=== PATIENT | male | born 1975 | race Caucasian/White ===

== ENCOUNTER 2021-04-26 18:01 | Emergency (ER) | payer BC, OTHER ==
[2021-04-26] MEDS ORDERED: ACETAMINOPHEN 500 MG TAB ONE (19:20)
[2021-04-26] MEDS ORDERED: NA CHLORIDE 0.9% 1,000 ML ONE (19:20)
[2021-04-26 19:51] LABS: Absolute Lymphocytes (CBC) 1.5 K/uL (0.7-4.9); Basophils % 0.4 % (0-1.3); Hematocrit 46.9 % (39.6-49.0); MPV 8.5 fL (7.6-11.3); RBC Red Blood Cell Count 5.24 M/uL (4.33-5.43)
[2021-04-26 19:52] LABS: Protime INR 0.99
--- NOTE | 2021-04-26 19:55 | RAD REPORT ---
EXAM DESCRIPTION: [place] Single View04/26/2021 7:21 pm CLINICAL HISTORY: fever COMPARISON: none FINDINGS: The lungs appear clear of acute infiltrate. The heart is normal size IMPRESSION: No acute abnormalities displayed
--- NOTE | 2021-04-26 19:55 | RAD REPORT ---
EXAM DESCRIPTION: CT - Stone Protocol - 04/26/2021 7:34 pm CLINICAL HISTORY: Abdominal pain. COMPARISON: None. TECHNIQUE: Computed axial tomography of the abdomen pelvis was obtained without oral or IV contrast. Lack of IV and oral contrast limits evaluation of solid organs, bowel, and vessels. Coronal reformat kyra images were obtained and reviewed. All CT scans are performed using dose optimization technique as appropriate and may include automated exposure control or mA/KV adjustment according to patient size. FINDINGS: A 1 millimeter calculus left kidney. No hydronephrosis. . An ureteral calculus is not note d. A bladder calculus is not present. Postsurgical changes involve the stomach. Small to moderate hiatal hernia The liver, spleen, pancreas and adrenals appear grossly normal There is no evidence of diverticulitis. Small inguinal hernias contain fat 4 centimeter amorphous soft tissue anterior central upper pelvis IMPRESSION: 1 millimeter nonobstructing left renal calculus. 4 centimeter amorphous soft tissue anterior central upper pelvis. It is uncertain if this all represe nts normal unopacified small bowel, inflammation or less likely mass. It is recommended that the vanessa ent have a CT scan with oral contrast for further evaluation
[2021-04-26 20:05] LABS: ALT/SGPT 39 U/L (12-78); AST/SGOT 21 U/L (15-37); Albumin 4.2 g/dL (3.4-5.0); Alkaline Phosphatase 59 U/L (45-117); Amylase 57 U/L (25-115); BUN Blood Urea Nitrogen 10 mg/dL (7-18); Bicarbonate 28 mmol/L (21-32); Bilirubin Direct 0.2 mg/dL (0-0.2); Bilirubin Total 0.9 mg/dL (0.2-1.0); Creatine Phosphokinase 110 U/L (39-308); Glucose Level 95 mg/dL (74-106); Lipase 94 U/L (73-393); Potassium 3.8 mmol/L (3.5-5.1); Protein, Total 8.5 g/dL (6.4-8.2); Sodium Level 138 mmol/L (136-145); Troponin (Emerg Dept Use Only) < 0.02 ng/mL (0.0-0.045)
[2021-04-26 20:10] LABS: CKMB Creatine Kinase MB < 1.0 ng/mL (1.0-3.6)
[2021-04-26 20:41] LABS: Urine Bacteria >50 /HPF (NONE SEEN)
[2021-04-26] MEDS ORDERED: CEFTRIAXONE/SWI 1gm 1 GM/10 ML SYR ONE (20:42)
[2021-04-26] MEDS ORDERED: IBUPROFEN 400 MG TAB ONE (20:42)
[2021-04-26 20:58] LABS: Urine Blood Trace-intact (Negative); Urine Glucose Negative (Negative); Urine Protein Negative (Negative)
[2021-04-26 21:23] LABS: Blood Morphology Comment NOT SEEN (NOT SEEN); Platelet Estimate ADEQ; White Blood Cell Scan OK (OK)
--- NOTE | 2021-04-26 21:40 | EDPHYS ---
Physician Documentation [facility] Name: Tru Cyr Age: 45 yrs Sex: Male : 1975 Arrival Date: 04/26/2021 Time: 18:02 Bed 19 Private MD: ED Physician Joseph Kamara HPI: 04/26 21:51 This 45 yrs old Male presents to ER via Wheelchair with complaints of septic. kb 21:51 The patient complains of pain in the right flank. The pain does not radiate. Onset: The kb symptoms/episode began/occurred today. Modifying factors: The symptoms are alleviated by nothing. the symptoms are aggravated by nothing. Associated signs and symptoms: Pertinent positives: fever, Pertinent negatives: diarrhea, dizziness, dysuria, urinary frequency, headache, hematuria, nausea, pain radiating to the lower extremities, vomiting. Severity of pain: At its worst the pain was moderate in the emergency department the pain is unchanged. The patient has not experienced similar symptoms in the past. The patient has not recently seen a physician. Pt reports he was driving home from work and felt his head get foggy so he called his to pick him up. States this has happened several times in the past due to an infection in his leg. States he has been septic before from cellulitis and it always starts out with foggy head and fever. . Historical: - Allergies: 18:16 No Known Allergies; aa5 - PMHx: 18:16 Cellulitis; Sepsis; aa5 - Immunization history:: Client reports receiving the Travis \T\ Travis single-dose vaccine. - Social history:: Smoking status: Patient denies any tobacco usage or history of. ROS: 21:49 Respiratory: Negative for shortness of breath, cough, wheezing, and pleuritic chest kb pain. 21:49 Constitutional: Positive for fever. 21:49 : Positive for flank pain. 21:49 All other systems are negative. Exam: 21:49 Constitutional: This is a well developed, well nourished patient who is awake, alert, kb and in no acute distress. Head/Face: Normocephalic, atraumatic. ENT: Moist Mucous membranes Cardiovascular: Regular rate and rhythm with a normal S1 and S2. No gallops, murmurs, or rubs. No pulse deficits. Respiratory: Respirations even and unlabored. No increased work of breathing, no retractions or nasal flaring. Abdomen/GI: Soft, non-tender. No distention Skin: Warm, dry with normal turgor. Normal color. MS/ Extremity: Pulses equal, no cyanosis. Neurovascular intact. Full, normal range of motion. Neuro: Awake and alert, GCS 15, oriented to person, place, time, and situation. Moves all extremities. Normal gait. Psych: Awake, alert, with orientation to person, place and time. Behavior, mood, and affect are within normal limits. 21:49 Back: CVA tenderness, that is mild, is noted on the right. Vital Signs: 18:17 BP 155 / 93; Pulse 107; Resp 24 S; Temp 101.4(O); Pulse Ox 96% on R/A; Weight 158.76 kg aa5 (R); Height 6 ft. 4 in. (193.04 cm) (R); 19:10 BP 154 / 96; Pulse 99; Resp 18; Pulse Ox 97% on R/A; tr6 20:32 BP 132 / 92; Pulse 108; Resp 20; Temp 102.7; Pulse Ox 98% on R/A; Pain 0/10; kc4 21:06 BP 115 / 63; Pulse 86; Resp 20; Temp 100.1; Pulse Ox 98% on R/A; Pain 3/10; kc4 22:02 BP 125 / 70 RA Supine (auto/reg); Pulse 90; Resp 18; Temp 99.0; Pulse Ox 99% on R/A; kc4 Pain 0/10; 18:17 Body Mass Index 42.60 (158.76 kg, 193.04 cm) aa5 Naty Coma Score: 21:06 Eye Response: spontaneous(4). Verbal Response: oriented(5). Motor Response: obeys kc4 commands(6). Total: 15. MDM: 18:40 Patient medically screened. kb 21:49 Data reviewed: vital signs, nurses notes. Data interpreted: Pulse oximetry: on room air kb is 98 %. Interpretation: normal. Counseling: I had a detailed discussion with the patient and/or guardian regarding: the historical points, exam findings, and any diagnostic results supporting the discharge/admit diagnosis, lab results, radiology results, the need for outpatient follow up, a urologist, to return to the emergency department if symptoms worsen or persist or if there are any questions or concerns that arise at home. 04/26 18:45 Order name: Amylase, Serum kb 04/26 18:45 Order name: Basic Metabolic Panel kb 04/26 18:45 Order name: Blood Culture Adult (2) kb 04/26 18:45 Order name: CBC with Diff; Complete Time: 21:23 kb 04/26 18:45 Order name: CPK; Complete Time: 20:11 kb 04/26 18:45 Order name: Ckmb; Complete Time: 20:11 kb 04/26 18:45 Order name: LFT's; Complete Time: 20:11 kb 04/26 18:45 Order name: Lactate; Complete Time: 20:28 kb 04/26 18:45 Order name: Lipase; Complete Time: 20:11 kb 04/26 18:45 Order name: Procalcitonin; Complete Time: 21:39 kb 04/26 18:45 Order name: Protime (+inr); Complete Time: 20:12 kb 04/26 18:45 Order name: Ptt, Activated; Complete Time: 20:12 kb 04/26 18:45 Order name: Troponin (emerg Dept Use Only); Complete Time: 20:11 kb 04/26 18:45 Order name: Urine Microscopic Only; Complete Time: 20:41 kb 04/26 18:45 Order name: Chest Single View XRAY; Complete Time: 20:10 kb 04/26 18:45 Order name: Accucheck; Complete Time: 19:45 kb 04/26 18:45 Order name: Cardiac monitoring; Complete Time: 19:08 kb 04/26 18:45 Order name: CT Stone Protocol; Complete Time: 20:10 kb 04/26 18:45 Order name: Amylase; Complete Time: 20:11 EDMS 04/26 18:45 Order name: Basic Metabolic Panel; Complete Time: 20:11 EDMS 04/26 19:51 Order name: Glucose, Ancillary Testing; Complete Time: 20:10 EDMS 04/26 20:43 Order name: Urine Culture EDMS 04/26 20:51 Order name: SARS-COV-2 RT PCR; Complete Time: 20:56 EDMS 04/26 20:58 Order name: Urine Dipstick-Ancillary; Complete Time: 20:58 EDMS 04/26 21:23 Order name: CBC Smear Scan; Complete Time: 21:23 EDMS 04/26 18:45 Order name: EKG - Nurse/Tech; Complete Time: 20:53 kb 04/26 18:45 Order name: IV Saline Lock - Large Bore; Complete Time: 19:08 kb 04/26 18:45 Order name: Labs collected and sent; Complete Time: 19:08 kb 04/26 18:45 Order name: O2 Per Protocol; Complete Time: 19:08 kb 04/26 18:45 Order name: O2 Sat Monitoring; Complete Time: 19:08 kb 04/26 18:45 Order name: Urine Dipstick-Ancillary (obtain specimen); Complete Time: 21:05 kb Administered Medications: 18:57 Drug: Acetaminophen 1000 mg Route: PO; tr6 19:21 Follow up: Response: No adverse reaction kc4 19:05 Drug: NS 0.9% (30 ml/kg) 30 ml/kg Route: IV; Rate: bolus; Site: right forearm; tr6 21:09 Follow up: Response: No adverse reaction; IV Status: Completed infusion kc4 21:10 Follow up: IV Status: Completed infusion kc4 20:33 Drug: Ibuprofen 800 mg Route: PO; kc4 20:50 Follow up: Response: Temperature is unchanged kc4 22:06 Follow up: Response: Temperature is decreased kc4 20:34 Drug: Rocephin (cefTRIAXone) 1 grams Route: IV; Rate: calculated rate; Site: right kc4 antecubital; 21:04 Follow up: Response: No adverse reaction kc4 22:06 Follow up: IV Status: Completed infusion kc4 21:11 Drug: NS 0.9% (30 ml/kg) 30 ml/kg Route: IV; Rate: bolus; Site: right antecubital; kc4 22:07 Follow up: IV Status: Completed infusion kc4 Disposition: 04/27 08:08 Co-signature as Attending Physician, Joseph Kamara MD I agree with the assessment and kdr plan of care. Disposition Summary: 04/26/21 21:39 Discharge Ordered Location: Home kb Condition: Stable kb Diagnosis - UTI/ Urinary tract infection, site not specified kb Followup: kb - With: Emergency Department - When: As needed - Reason: Worsening of condition Followup: kb - With: Private Physician - When: 2 - 3 days - Reason: Recheck today's complaints, Continuance of care, Re-evaluation by your physician Discharge Instructions: - Discharge Summary Sheet kb - Urinary Tract Infection, Adult, [id number] kb Forms: - Medication Reconciliation Form kb - Thank You Letter kb - Antibiotic Education kb - Prescription Opioid Use kb Prescriptions: - Cipro 500 mg Oral Tablet - take 1 tablet by ORAL route every 12 hours for 10 days; 20 tablet; Refills: 0, kb Product Selection Permitted Signatures: Dispatcher [employer] EDDC Minerva Yun, HEALTHCARE MANAGER-C HEALTHCARE MANAGER-Ckb Joseph Kamara MD MD [facility], RN RN aa5 Hussain Rodriguez FNP-C HEALTHCARE MANAGER-Cla1 Yolanda Henry RN RN tr6 Aria Copeland Corrections: (The following items were deleted from the chart) 04/26 19:49 18:46 CORONAVIRUS+ ordered. EDDC EDDC
--- NOTE | 2021-04-26 21:40 | ER ---
Nurse's Notes [facility] Name: Tru Cyr Age: 45 yrs Sex: Male : 1975 Arrival Date: 04/26/2021 Time: 18:02 Bed 19 Private MD: Diagnosis: UTI/ Urinary tract infection, site not specified Presentation: 04/26 18:17 Chief complaint: Pt's states "he normally gets septic before we know it from aa5 cellulitis from the right leg, he started with pain to his right leg and his flank is hurting too". Pt reports fever. Coronavirus screen: fever. Ebola Screen: Patient negative for fever greater than or equal to 101.5 degrees Fahrenheit, and additional compatible Ebola Virus Disease symptoms. Initial Sepsis Screen: Does the patient meet any 2 criteria? Temp <36.0*C (96.8*F)) or > 38.3*C (100.9*F). HR > 90 bpm. Yes Does the patient have a suspected source of infection? Yes:. Risk Assessment: Do you want to hurt yourself or someone else? Patient reports no desire to harm self or others. Onset of symptoms was April 2021. 18:17 Method Of Arrival: Wheelchair aa5 18:17 Acuity: CULLEN 2 aa5 Historical: - Allergies: 18:16 No Known Allergies; aa5 - PMHx: 18:16 Cellulitis; Sepsis; aa5 - Immunization history:: Client reports receiving the Travis \\T\\ Travis single-dose vaccine. - Social history:: Smoking status: Patient denies any tobacco usage or history of. Screenin:08 Abuse screen: Denies threats or abuse. Denies injuries from another. Nutritional tr6 screening: No deficits noted. Tuberculosis screening: No symptoms or risk factors identified. Fall Risk None identified. Assessment: 19:09 General: Appears in no apparent distress. comfortable, obese, Behavior is calm, tr6 cooperative, appropriate for age. Pain: Denies pain. Neuro: Level of Consciousness is awake, alert, obeys commands, Oriented to person, place, time, situation, Appropriate for age. Cardiovascular: No deficits noted. Respiratory: No deficits noted. GI: No deficits noted. : No deficits noted. EENT: No deficits noted. Derm: Skin temperature is hot. Musculoskeletal: No deficits noted. Vital Signs: 18:17 BP 155 / 93; Pulse 107; Resp 24 S; Temp 101.4(O); Pulse Ox 96% on R/A; Weight 158.76 kg aa5 (R); Height 6 ft. 4 in. (193.04 cm) (R); 19:10 BP 154 / 96; Pulse 99; Resp 18; Pulse Ox 97% on R/A; tr6 20:32 BP 132 / 92; Pulse 108; Resp 20; Temp 102.7; Pulse Ox 98% on R/A; Pain 0/10; kc4 21:06 BP 115 / 63; Pulse 86; Resp 20; Temp 100.1; Pulse Ox 98% on R/A; Pain 3/10; kc4 22:02 BP 125 / 70 RA Supine (auto/reg); Pulse 90; Resp 18; Temp 99.0; Pulse Ox 99% on R/A; kc4 Pain 0/10; 18:17 Body Mass Index 42.60 (158.76 kg, 193.04 cm) aa5 Vitals: 21:06 Cardiac Rhythm Assessment Regular Sinus rhythm. kc4 Naty Coma Score: 21:06 Eye Response: spontaneous(4). Verbal Response: oriented(5). Motor Response: obeys kc4 commands(6). Total: 15. ED Course: 18:02 Patient arrived in ED. as 18:16 Arm band placed on. aa5 18:20 Triage completed. aa5 18:40 Minerva Yun F[facility]-C [facility]. kb 18:40 Joseph Kamara MD is Attending Physician. kb 18:46 Yolanda Henry RN is Primary Nurse. tr6 19:05 Inserted saline lock: 18 gauge in right forearm, using aseptic technique. Blood tr6 collected. 19:08 Resting quietly. Awaiting lab results. tr6 19:08 Patient has correct armband on for positive identification. Placed in gown. Bed in low tr6 position. Side rails up X2. quality assurance monitor final on. Pulse ox on. NIBP on. Door closed. Noise minimized. Visitors limited. Lights dimmed. Moved to private room. Warm blanket given. 19:08 No provider procedures requiring assistance completed. Patient maintains SpO2 tr6 saturation greater than 95% on room air. 19:19 Amylase, Serum Sent. kc4 19:19 Basic Metabolic Panel Sent. kc4 19:19 Blood Culture Adult (2) Sent. kc4 19:19 CBC with Diff Sent. kc4 19:19 CPK Sent. kc4 19:19 Ckmb Sent. kc4 19:20 LFT's Sent. kc4 19:20 Lactate Sent. kc4 19:20 Lipase Sent. kc4 19:20 Procalcitonin Sent. kc4 19:20 Protime (+inr) Sent. kc4 19:20 Ptt, Activated Sent. kc4 19:20 Troponin (emerg Dept Use Only) Sent. kc4 19:20 Urine Microscopic Only Sent. kc4 19:21 Chest Single View XRAY In Process Unspecified. EDMS 19:34 CT Stone Protocol In Process Unspecified. EDMS 22:04 IV discontinued, intact, bleeding controlled, No redness/swelling at site. Pressure kc4 dressing applied. Administered Medications: 18:57 Drug: Acetaminophen 1000 mg Route: PO; tr6 19:21 Follow up: Response: No adverse reaction kc4 19:05 Drug: NS 0.9% (30 ml/kg) 30 ml/kg Route: IV; Rate: bolus; Site: right forearm; tr6 21:09 Follow up: Response: No adverse reaction; IV Status: Completed infusion kc4 21:10 Follow up: IV Status: Completed infusion kc4 20:33 Drug: Ibuprofen 800 mg Route: PO; kc4 20:50 Follow up: Response: Temperature is unchanged kc4 22:06 Follow up: Response: Temperature is decreased kc4 20:34 Drug: Rocephin (cefTRIAXone) 1 grams Route: IV; Rate: calculated rate; Site: right kc4 antecubital; 21:04 Follow up: Response: No adverse reaction kc4 22:06 Follow up: IV Status: Completed infusion kc4 21:11 Drug: NS 0.9% (30 ml/kg) 30 ml/kg Route: IV; Rate: bolus; Site: right antecubital; kc4 22:07 Follow up: IV Status: Completed infusion kc4 Outcome: 21:39 Discharge ordered by . kb 22:04 Discharged to home ambulatory, with significant other. kc4 22:04 Condition: improved 22:04 Discharge instructions given to patient, significant other, Instructed on discharge instructions, follow up and referral plans. medication usage, Demonstrated understanding of instructions, follow-up care, medications, Prescriptions given X 1. 22:07 Patient left the ED. kc4 Signatures: Dispatcher [employer] EDMinerva Maldonado, CARMEN OLIVIER-Allyn Camp Audri, RN RN aa5 Yolanda Henry RN RN tr6 Aria Copeland kc4 Corrections: (The following items were deleted from the chart) 21:11 21:09 NS 0.9% (30 ml/kg) 30 ml/kg IV at bolus in right antecubital kc4 kc4
[2021-04-26 23:22] VITALS: BP 125/70; TEMP 99; O2SAT 99
== END 2021-04-26 22:07 | disposition home or self-care (01) ==
LOC: ER 18:01
DX: N39.0 Urinary tract infection, site not specified (principal); Z20.822 Contact with and (suspected) exposure to COVID-19
CPT/HCPCS: 93005; 87040 ×2; 87088; 85025; 87086; 80048; 36415; 82150; 82550; 85610; 82947; 80076; 83605; 85730; 87077; 87186; 84484; 82553; 83690; 84145; 76377; 74176; 71045; 99285; U0003; J0696; J7030; 81003; 81015

== ENCOUNTER 2021-05-12 10:34 | Emergency (ER) | payer BC ==
[2021-05-12 11:38] LABS: Absolute Lymphocytes (CBC) 1.9 K/uL (0.7-4.9); Basophils % 0.7 % (0-1.3); Hematocrit 43.6 % (39.6-49.0); Lymphocytes % 27.7 % (15.3-44.8); MPV 8.3 fL (7.6-11.3); RBC Red Blood Cell Count 4.91 M/uL (4.33-5.43)
[2021-05-12 11:41] LABS: Protime INR 0.96
[2021-05-12] MEDS ORDERED: AMLODIPINE 5 MG TAB ONE (11:52)
[2021-05-12] MEDS ORDERED: FOLIC ACID 5 MG/ML VIAL ONE (11:53)
[2021-05-12] MEDS ORDERED: NA CHLORIDE 0.9% 1,000 ML ONE (11:53)
[2021-05-12 11:58] LABS: ALT/SGPT 35 U/L (12-78); AST/SGOT 15 U/L (15-37); Albumin 3.5 g/dL (3.4-5.0); Alkaline Phosphatase 51 U/L (45-117); BUN Blood Urea Nitrogen 13 mg/dL (7-18); Bicarbonate 29 mmol/L (21-32); Bilirubin Direct 0.1 mg/dL (0-0.2); Bilirubin Total 0.5 mg/dL (0.2-1.0); Glucose Level 88 mg/dL (74-106); Magnesium 2.1 mg/dL (1.8-2.4); NT PRO-BNP 98 pg/mL (<125); Potassium 4.1 mmol/L (3.5-5.1); Protein, Total 7.1 g/dL (6.4-8.2); Sodium Level 143 mmol/L (136-145); Troponin (Emerg Dept Use Only) < 0.02 ng/mL (0.0-0.045)
--- NOTE | 2021-05-12 12:29 | RAD REPORT ---
EXAM DESCRIPTION: RAD - Chest Single View - 05/12/2021 12:12 pm CLINICAL HISTORY: COUGH COMPARISON: Chest Single View dated 04/26/2021 FINDINGS: Lines: None. Lungs: No evidence of edema or pneumonia. Pleural: No significant pleural effusions or pneumothorax. Cardiac: The heart size is within normal limits. Bones: No acute fractures. Other: IMPRESSION: No acute cardiopulmonary disease.
--- NOTE | 2021-05-12 12:32 | RAD REPORT ---
EXAM DESCRIPTION: CT - Head angio - 05/12/2021 12:23 pm CLINICAL HISTORY: Dizziness;Headache COMPARISON: Head Brain Wo Cont dated 05/12/2021; MAXILLOFACIAL W O CONTRAST dated 10/16/2009 TECHNIQUE: CT angiography of the head was performed with MIPs. All CT scans are performed using dose optimization technique as appropriate and may include automated exposure control or mA/KV adjustment according to patient size. FINDINGS: Anterior circulation: No aneurysm or large vessel occlusion. No hemodynamically significant stenosis. No arteriovenous malf ormation identified. Posterior circulation: No aneurysm or large vessel occlusion. No hemodynamically significant stenosis. No arteriovenous malf ormation identified. IMPRESSION: No significant flow abnormality is detected.
--- NOTE | 2021-05-12 12:32 | RAD REPORT ---
EXAM DESCRIPTION: CT - Head Brain Wo Cont - 05/12/2021 12:23 pm CLINICAL HISTORY: Dizziness;Headache COMPARISON: MAXILLOFACIAL W O CONTRAST dated 10/16/2009 TECHNIQUE: All CT scans are performed using dose optimization technique as appropriate and may inclu de automated exposure control or mA/KV adjustment according to patient size. FINDINGS: No intracranial hemorrhage, hydrocephalus or extra-axial fluid collection.No areas of brai n edema or evidence of midline shift. The paranasal sinuses and mastoids are clear. The calvarium is intact. IMPRESSION: No acute intracranial abnormality.
--- NOTE | 2021-05-12 12:34 | RAD REPORT ---
EXAM DESCRIPTION: CT - Neck Angio - 05/12/2021 12:23 pm CLINICAL HISTORY: PAIN COMPARISON: No comparisons TECHNIQUE: CT angiography of the neck vessels was performed with MIPs. All CT scans are performed using dose optimization technique as appropriate and may include automated exposure control or mA/KV adjustment according to patient size. FINDINGS: A left aortic arch is identified with normal three vessel configuration of the great vesse ls. No significant flow abnormality is seen of the common carotid bilaterally. No significant stenosis is identified involving the cervical segments of both internal carotid arteri es. Normal flow is seen within both vertebral arteries. IMPRESSION: No significant flow abnormality of the neck vessels is identified.
[2021-05-12 12:37] LABS: Urine Blood Negative (Negative); Urine Glucose Negative (Negative); Urine Protein Negative (Negative); Urine Specific Gravity 1.015 (1.005-1.030)
--- NOTE | 2021-05-12 12:41 | EDPHYS ---
Physician Documentation [facility] Name: Tru Cyr Age: 46 yrs Sex: Male : 1975 Arrival Date: 05/12/2021 Time: 10:34 Bed 12 Private MD: Kevin Gross ED Physician Guillaume Resendez HPI: 05/12 11:24 This 46 yrs old Male presents to ER via Ambulatory with complaints of zahraa Headache. 11:24 The patient complains of pain to the top of head, forehead, left frontal area, left zahraa side of the back of head, left occipital area, left base of the skull, right frontal area, right side of the back of head, right occipital area and right base of the skull. The patient describes the headache as pounding, a pressure. Onset: The symptoms/episode began/occurred 5 day(s) ago. Associated signs and symptoms: Pertinent positives: dizziness, nausea, blurred vision. Severity of symptoms: At its worst the pain was moderate, in the emergency department the pain is unchanged. Headache History: Denies prior headaches. The symptoms are alleviated by nothing. the symptoms are aggravated by nothing. The patient has not experienced similar symptoms in the past. Historical: - Allergies: 10:43 No Known Allergies; tr6 - Home Meds: 10:43 Celexa Oral [Active]; tr6 - PMHx: 10:43 Cellulitis; Sepsis; flesh eating bacteria; tr6 - PSHx: 10:43 gastric sleeve; tr6 - Immunization history:: Adult Immunizations up to date, Client reports receiving the Travis \T\ Travis single-dose vaccine. Date received November 2020. - Social history:: Smoking status: Patient denies any tobacco usage or history of. Patient uses. - Family history:: not pertinent. ROS: 11:24 Constitutional: Negative for fever, chills, and weight loss, Eyes: Negative for injury, zahraa pain, redness, and discharge, ENT: Negative for injury, pain, and discharge, Neck: Negative for injury, pain, and swelling, Cardiovascular: Negative for chest pain, palpitations, and edema, Respiratory: Negative for shortness of breath, cough, wheezing, and pleuritic chest pain, Abdomen/GI: Negative for abdominal pain, nausea, vomiting, diarrhea, and constipation, Back: Negative for injury and pain, : Negative for injury, bleeding, discharge, and swelling, MS/Extremity: Negative for injury and deformity, Skin: Negative for injury, rash, and discoloration, Psych: Negative for depression, anxiety, suicide ideation, homicidal ideation, and hallucinations, Allergy/Immunology: Negative for hives, rash, and allergies, Endocrine: Negative for neck swelling, polydipsia, polyuria, polyphagia, and marked weight changes, Hematologic/Lymphatic: Negative for swollen nodes, abnormal bleeding, and unusual bruising. 11:24 Neuro: Positive for headache, weakness. Exam: 11:24 Constitutional: This is a well developed, well nourished patient who is awake, alert, zahraa and in no acute distress. Head/Face: Normocephalic, atraumatic. Eyes: Pupils equal round and reactive to light, extra-ocular motions intact. Lids and lashes normal. Conjunctiva and sclera are non-icteric and not injected. Cornea within normal limits. Periorbital areas with no swelling, redness, or edema. ENT: Nares patent. No nasal discharge, no septal abnormalities noted. Tympanic membranes are normal and external auditory canals are clear. Oropharynx with no redness, swelling, or masses, exudates, or evidence of obstruction, uvula midline. Mucous membranes moist. Neck: Trachea midline, no thyromegaly or masses palpated, and no cervical lymphadenopathy. Supple, full range of motion without nuchal rigidity, or vertebral point tenderness. No Meningismus. Chest/axilla: Normal chest wall appearance and motion. Nontender with no deformity. No lesions are appreciated. Cardiovascular: Regular rate and rhythm with a normal S1 and S2. No gallops, murmurs, or rubs. Normal PMI, no JVD. No pulse deficits. Respiratory: Lungs have equal breath sounds bilaterally, clear to auscultation and percussion. No rales, rhonchi or wheezes noted. No increased work of breathing, no retractions or nasal flaring. Abdomen/GI: Soft, non-tender, with normal bowel sounds. No distension or tympany. No guarding or rebound. No evidence of tenderness throughout. Back: No spinal tenderness. No costovertebral tenderness. Full range of motion. Male : Normal genitalia with no discharge or lesions. Skin: Warm, dry with normal turgor. Normal color with no rashes, no lesions, and no evidence of cellulitis. MS/ Extremity: Pulses equal, no cyanosis. Neurovascular intact. Full, normal range of motion. Neuro: Awake and alert, GCS 15, oriented to person, place, time, and situation. Cranial nerves II-XII grossly intact. Motor strength 5/5 in all extremities. Sensory grossly intact. Cerebellar exam normal. Normal gait. Psych: Awake, alert, with orientation to person, place and time. Behavior, mood, and affect are within normal limits. 11:24 Neck: ROM/movement: is normal, no acute changes, pain, is not appreciated, limited range of motion, is not appreciated, Meningeal signs: are not present, Kernig's sign is negative, Brudzinski's sign is negative. 12:30 ECG was reviewed by the Attending Physician. [facility] Vital Signs: 10:37 BP 165 / 117; Pulse 90; Resp 18; Temp 98.1(T); Pulse Ox 100% on R/A; Weight 158.76 kg; tr6 Height 6 ft. 4 in. (193.04 cm); Pain 5/10; 10:53 BP 151 / 79; Pulse 79; Resp 18; Pulse Ox 97% on R/A; Pain 6/10; ch5 13:19 BP 140 / 91; Pulse 78; Resp 18; Pulse Ox 98% ; Pain 6/10; ch5 10:37 Body Mass Index 42.60 (158.76 kg, 193.04 cm) tr6 [place] Coma Score: 11:28 Eye Response: spontaneous(4). Verbal Response: oriented(5). Motor Response: obeys [facility] commands(6). Total: 15. MDM: 10:50 Patient medically screened. [facility] 11:28 Differential diagnosis: cerebral vascular accident, migraine, sinusitis, tension zahraa headache, trigeminal neuralgia, vasomotor headache. Data reviewed: vital signs, nurses notes, lab test result(s), EKG, radiologic studies, CT scan, plain films. 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 Test interpretation: by ED physician or midlevel provider: ECG, plain radiologic studies. Counseling: I had a detailed discussion with the patient and/or guardian regarding: the historical points, exam findings, and any diagnostic results supporting the discharge/admit diagnosis, lab results, radiology results, the need for outpatient follow up. 05/12 11:17 Order name: Basic Metabolic Panel [facility] 05/12 11:17 Order name: CBC with Diff [facility] 05/12 11:17 Order name: LFT's [facility] 05/12 11:17 Order name: Magnesium; Complete Time: 12:21 [facility] 05/12 11:17 Order name: NT PRO-BNP; Complete Time: 12:21 [facility] 05/12 11:17 Order name: PT-INR; Complete Time: 12:21 [facility] 05/12 11:17 Order name: Troponin (emerg Dept Use Only); Complete Time: 12:21 [facility] 05/12 11:17 Order name: Urine Culture [facility] 05/12 11:18 Order name: Basic Metabolic Panel; Complete Time: 12:21 [facility] 05/12 11:18 Order name: CBC with Automated Diff; Complete Time: 12:21 [facility] 05/12 11:18 Order name: Liver (Hepatic) Function; Complete Time: 12:21 [facility] 05/12 11:22 Order name: CRP [facility] 05/12 11:22 Order name: Sed Rate [facility] 05/12 11:23 Order name: C-Reactive Protein [facility] 05/12 11:17 Order name: XRAY Chest (1 view); Complete Time: 12:40 [facility] 05/12 11:17 Order name: EKG; Complete Time: 11:18 [facility] 05/12 11:17 Order name: Cardiac monitoring; Complete Time: 11:43 [facility] 05/12 11:17 Order name: EKG - Nurse/Tech; Complete Time: 11:55 [facility] 05/12 11:17 Order name: IV Saline Lock; Complete Time: 11:43 [facility] 05/12 11:17 Order name: Labs collected and sent; Complete Time: 11:44 [facility] 05/12 11:17 Order name: O2 Per Protocol; Complete Time: 11:44 [facility] 05/12 11:17 Order name: CT Head Angio; Complete Time: 12:40 [facility] 05/12 11:17 Order name: CT Head Brain wo Cont; Complete Time: 12:40 [facility] 05/12 11:17 Order name: CT Neck Angio; Complete Time: 12:40 [facility] 05/12 11:23 Order name: Sedimentation Rate, [place]; Complete Time: 12:40 [facility] 05/12 12:37 Order name: Urine Dipstick-Ancillary; Complete Time: 12:40 [facility] 05/12 11:17 Order name: O2 Sat Monitoring; Complete Time: 11:44 zahraa 05/12 11:17 Order name: Urine Dipstick-Ancillary (obtain specimen) zahraa EC:30 Rate is 76 beats/min. Rhythm is regular. QRS [place] is Normal. [place] interval is normal. QRS zahraa interval is normal. QT interval is normal. No Q waves. T waves are Normal. No ST changes noted. Clinical impression: Normal ECG and No evidence of ischemia. Interpreted by me. Reviewed by me. Administered Medications: 11:40 Drug: foLIC Acid 1 mg Route: IVPB; Site: right forearm; ch5 11:41 Drug: NS 0.9% 1000 ml Route: IV; Rate: 125 ml/hr; Site: right antecubital; ch5 11:41 Drug: Norvasc (amlodipine) 5 mg Route: PO; ch5 13:19 Follow up: BP 140 / 91; Pulse 78 bpm; Resp 18 bpm; Pulse Ox 98% ; Pain 6/10 Adult ch5 11:44 Drug: NS 0.9% 500 ml Route: IV; Rate: bolus; Site: right antecubital; ch5 13:18 Follow up: IV Status: Completed infusion ch5 13:18 Follow up: Response: No adverse reaction; IV Intake: 350ml ch5 Disposition Summary: 05/12/21 12:41 Discharge Ordered Location: Home zahraa Problem: new zahraa Symptoms: have improved zahraa Condition: Stable zahraa Diagnosis - Headache zahraa - Essential (primary) hypertension zahraa Followup: zahraa - With: - When: 2 - 3 days - Reason: Recheck today's complaints, Continuance of care, Re-evaluation by your physician Followup: zahraa - With: Tk Daley MD - When: 2 - 3 days - Reason: Recheck today's complaints, Re-evaluation by your physician Discharge Instructions: - Discharge Summary Sheet zahraa - General Headache Without Cause zahraa - Hypertension, Adult zahraa - Hypertension, Adult, Zntj-[id number] zahraa - How to Take Your Blood Pressure, [id number] zahraa - Aspirin and Your Heart zahraa - General Headache Without Cause, [id number] zahraa - Managing Your Hypertension zahraa Forms: - Medication Reconciliation Form zahraa - Thank You Letter zahraa - Antibiotic Education zahraa - Prescription Opioid Use zahraa Prescriptions: - Norvasc 5 mg Oral Tablet - take 1 tablet by ORAL route once daily; 20 tablet; Refills: 0, Product [facility] Selection Permitted - Zofran 4 mg Oral Tablet - take 1 tablet by ORAL route every 12 hours As needed; 20 tablet; Refills: 0, [facility] Product Selection Permitted Signatures: Dispatcher [employer] Guillaume Hernandez MD MD cha Ramnanan, Tiffany, RN RN tr6 Vick Bassett RN RN ch5
--- NOTE | 2021-05-12 12:41 | ER ---
Nurse's Notes [facility] Name: Tru Cyr Age: 46 yrs Sex: Male : 1975 Arrival Date: 05/12/2021 Time: 10:34 Bed 12 Private MD: Kevin Gross Diagnosis: Headache;Essential (primary) hypertension Presentation: 05/12 10:37 Chief complaint: Patient states: pt was previously treated for kidney infection about a tr6 month ago. pt states that since then he has had a migraine in the back of his head and his neck, like pressure, worse with movement. pt states that he has had blurry vision associated with the headache a couple times, he also states that he has had severe fatigue, some nausea, some dizziness, and forgetfulness. pt takes OTC meds that dull the pain. Coronavirus screen: At this time, unable to obtain information related to travel outside the [place] Ebola Screen: No symptoms or risks identified at this time. Initial Sepsis Screen: Does the patient meet any 2 criteria? No. Patient's initial sepsis screen is negative. Does the patient have a suspected source of infection? No. Patient's initial sepsis screen is negative. Risk Assessment: Do you want to hurt yourself or someone else? Patient reports no desire to harm self or others. Onset of symptoms is unknown. 10:37 Method Of Arrival: Ambulatory tr6 10:37 Acuity: CULLEN 2 tr6 Triage Assessment: 10:43 Headache History: Denies prior headaches. General: Appears in no apparent distress. tr6 Behavior is calm, cooperative, appropriate for age. Pain: Complains of pain in neck radiating up to back ofo head Pain currently is 5 out of 10 on a pain scale. at worst was 10 out of 10 on a pain scale. Pain began gradually, Also complains of nausea, sleeplessness. EENT: No deficits noted. Neuro: No deficits noted. Cardiovascular: No deficits noted. Respiratory: No deficits noted. GI: Abdomen is. : No deficits noted. Derm: No deficits noted. Musculoskeletal: No deficits noted. Historical: - Allergies: 10:43 No Known Allergies; tr6 - Home Meds: 10:43 Celexa Oral [Active]; tr6 - PMHx: 10:43 Cellulitis; Sepsis; flesh eating bacteria; tr6 - PSHx: 10:43 gastric sleeve; tr6 - Immunization history:: Adult Immunizations up to date, Client reports receiving the Travis \T\ Travis single-dose vaccine. Date received November 2020. - Social history:: Smoking status: Patient denies any tobacco usage or history of. Patient uses. - Family history:: not pertinent. Screenin:47 Abuse screen: Denies threats or abuse. Denies injuries from another. Nutritional tr6 screening: No deficits noted. Tuberculosis screening: No symptoms or risk factors identified. Fall Risk None identified. Assessment: 10:53 Reassessment: No changes from previously documented assessment. Plassed in Dark room, 5 ER 12. placed on monitor call lights in reach.. Pain: Pain currently is 6 out of 10 on a pain scale. Aggravated by increased activity. Vital Signs: 10:37 BP 165 / 117; Pulse 90; Resp 18; Temp 98.1(T); Pulse Ox 100% on R/A; Weight 158.76 kg; tr6 Height 6 ft. 4 in. (193.04 cm); Pain 5/10; 10:53 BP 151 / 79; Pulse 79; Resp 18; Pulse Ox 97% on R/A; Pain 6/10; ch5 13:19 BP 140 / 91; Pulse 78; Resp 18; Pulse Ox 98% ; Pain 6/10; ch5 10:37 Body Mass Index 42.60 (158.76 kg, 193.04 cm) tr6 [place] Coma Score: 11:28 Eye Response: spontaneous(4). Verbal Response: oriented(5). Motor Response: obeys zahraa commands(6). Total: 15. ED Course: 10:34 Patient arrived in ED. am2 10:34 Kevin Gross MD is Private Physician. am2 10:43 Triage completed. tr6 10:45 Yolanda Henry RN is Primary Nurse. tr6 10:47 Guillaume Resendez MD is Attending Physician. zahraa 10:47 Patient has correct armband on for positive identification. tr6 10:57 No provider procedures requiring assistance completed. ch5 11:39 Pulse ox on. NIBP on. ch5 11:39 Inserted saline lock: 20 gauge in right forearm, using aseptic technique. Patient ch5 maintains SpO2 saturation greater than 95% on room air. 11:40 Sed Rate Sent. ch5 11:43 Basic Metabolic Panel Sent. ch5 11:43 CBC with Diff Sent. ch5 11:43 LFT's Sent. ch5 11:45 CRP Sent. ch5 11:54 EKG done, by ED staff, reviewed by Guillaume Resendez MD. dh3 12:12 XRAY Chest (1 view) In Process Unspecified. EDMS 12:23 CT Head Angio In Process Unspecified. EDMS 12:23 CT Head Brain wo Cont In Process Unspecified. EDMS 12:23 CT Neck Angio In Process Unspecified. EDMS 12:41 Kevin Gross MD is Referral Physician. zahraa 12:41 Tk Daley MD is Referral Physician. zahraa 13:20 IV discontinued, intact. ch5 Administered Medications: 11:40 Drug: foLIC Acid 1 mg Route: IVPB; Site: right forearm; ch5 11:41 Drug: NS 0.9% 1000 ml Route: IV; Rate: 125 ml/hr; Site: right antecubital; ch5 11:41 Drug: Norvasc (amlodipine) 5 mg Route: PO; ch5 13:19 Follow up: BP 140 / 91; Pulse 78 bpm; Resp 18 bpm; Pulse Ox 98% ; Pain 6/10 Adult ch5 11:44 Drug: NS 0.9% 500 ml Route: IV; Rate: bolus; Site: right antecubital; ch5 13:18 Follow up: IV Status: Completed infusion ch5 13:18 Follow up: Response: No adverse reaction; IV Intake: 350ml ch5 Intake: 13:18 IV: 350ml; Total: 350ml. ch5 Outcome: 12:41 Discharge ordered by . zahraa 13:20 Discharged to home ch5 13:20 Discharged to home ambulatory. 13:20 Condition: stable 13:20 Discharge instructions given to patient, family. 13:20 Discharge instructions given to patient, family, Prescriptions given X 4. 13:22 Patient left the ED. ch5 Signatures: Dispatcher [employer] Guillaume Hernandez MD MD cha Moreno, Amanda am2 Herrera, Tejal 3 Yolanda Henry, RN RN tr6 Vick Bassett RN RN ch5
[2021-05-12 13:33] VITALS: TEMP 98.1
[2021-05-12 13:36] VITALS: BP 140/91; O2SAT 98
--- NOTE | 2021-05-14 18:16 | EKG ---
Test Date: 2021-05-12 Test Time: 11:48:19 Agriculture Scientist: TAMIKO MEASUREMENT RESULTS: Intervals: Rate: 76 IA: 150 QRSD: 88 QT: 374 QTc: 420 [place]: P: 55 IA: 150 QRS: 22 T: 39 INTERPRETIVE STATEMENTS: Normal sinus rhythm Normal ECG Compared to ECG 04/26/2021 19:55:04 Sinus tachycardia no longer present Electronically Signed On 05-14-21 18:06:43 CDT by Justo Philippe
== END 2021-05-12 13:22 | disposition home or self-care (01) ==
LOC: ER 10:34
DX: R51.9 Headache, unspecified (principal); I10 Essential (primary) hypertension
CPT/HCPCS: 96361; 93005; 87088; 85025; 87086; 80048; 36415; 83735; 85610; 80076; 85652; 81003; 84484; 83880; 86140; 70450; 70496; 70498; 71045; 96374; 99284; Q9967; J7030